=== PATIENT | male | born 1990 | race African-American/Black ===

== ENCOUNTER 2022-09-30 09:21 | Emergency (ER) | payer MEDICAID ==
[~2022-09-30] VITALS: Ht 177.8 cm; Wt 86.4 kg
[2022-09-30] MEDS ORDERED: CEPHALEXIN MONOHYDRATE 500 MG CAPSULE PO ONE (11:30)
[2022-09-30] MEDS ORDERED: SULFAMETHOX/TRIMETH DS 800-160 MG/TABLET PO ONE (11:30)
[2022-09-30] MEDS ORDERED: PERTUSS(ACELL),DIPH,TET VAC/PF 0.5 ML SYRINGE IM. ONE (11:30)
[2022-09-30 11:43] VITALS: BP 119/72
[2022-09-30] MEDS ORDERED: IBUP-2070 PO (12:00)
[2022-09-30] MEDS ORDERED: CEPH-558 PO (12:00)
[2022-09-30] MEDS ORDERED: SULF-261 PO (12:00)
== END 2022-09-30 12:08 | disposition home or self-care (01) ==
LOC: EMS 09:28
DX: L03.221 Cellulitis of neck (principal); F12.90 Cannabis use, unspecified, uncomplicated; F17.210 Nicotine dependence, cigarettes, uncomplicated
CPT/HCPCS: 90471; 90715; 99283